=== PATIENT | female | born 2000 | race Caucasian/White ===

== ENCOUNTER → 2022-10-07 | Outpatient (CLI) | payer OTHER ==
--- NOTE | 2022-10-07 12:46 | FL ---
EXAMINATION TYPE: FL UGI w small bowel DATE OF EXAM: 10/07/2022 11:33 AM CLINICAL INDICATION:Female, 22 years old with history of R10.31 ABD PAIN; COMPARISON: None TECHNIQUE: The procedure was explained and patient history elicited. All patient questions were ans wered prior to start of procedure. A marketing support coordinator radiograph of the abdomen was also reviewed. Multiple flu oroscopic spot images of the esophagus, stomach and duodenum were obtained following ingestion of liq uid barium and EZ-gas crystals. Fluoroscopic time: 1 minute 15 seconds Fluoroscopic images: 3 Radiographs taken: 3 FINDINGS: Upper GI examination: The marketing support coordinator abdominal radiograph demonstrates a normal bowel gas pattern without dilated loops of small or large bowel. There is no evidence for organomegaly or pneumoperitoneum. No abnormal calcificat ions. The visualized osseous structures are intact. Real-time imaging of the esophagus demonstrate no focal stricture, ulceration or abnormal outpouching . No hiatal hernia was visualized. No evidence of gastroesophageal reflux was seen. The stomach an d duodenum demonstrate a normal course and contour. There is no evidence of focal gastric or duodena l ulceration, stricture, or abnormal outpouching. Contrast is seen extending from the duodenojejunal junction into the cecum after 30 minutes, which is within the expected time period. The small bowel follows normal distribution and contour without an y evidence of extraluminal or intraluminal irregularity. There is no displacement of bowel loops or extraluminal extravasation of contrast material. Manual spot imaging at the end of 30 minutes for terminal ileum was limited secondary to overlapping small bowel. IMPRESSION: 1. Normal upper gastrointestinal examination. 2. Normal detailed small bowel examination.
== END | disposition home or self-care (01) ==
LOC: RADUSWWP 10:08
PROVIDERS: ATTEND Internal Medicine Gastroenterology
DX: R10.31 Right lower quadrant pain (principal)
CPT/HCPCS: 74240; 74248